=== PATIENT | female | born 1985 | race Caucasian/White ===

== ENCOUNTER 2016-12-04 16:08 | Emergency (ER) | payer OTHER ==
[2016-12-04] MEDS ORDERED: diphenhydrAMINE HCl 25 MG CAP ONE (16:46)
[2016-12-04 16:59] LABS: Bilirubin Negative (Negative); Blood, Urine Trace (Negative); Clarity Hazy (Clear); Glucose, Urine (Dipstick) Negative (Negative); Leukocyte Negative (Negative); Nitrite Negative (Negative); Protein, Urine (Dipstick) Negative (Neg-Trace); Urobilinogen 0.2 mg/dL (0.2-1.0); pH, Urine 8.5 (5.0-9.0)
[2016-12-04 17:01] LABS: Bacteria/HPF 3+ HPF (None Seen); Transitional Epithelial 0-3 HPF (0-3); Yeast-All Forms Rare HPF (None Seen)
[2016-12-04] MEDS ORDERED: Phenazopyridine HCl 97.5 MG TABLET ONE (17:14)
[2016-12-04] MEDS ORDERED: Nitrofurantoin Monohyd/M-Cryst 100 MG CAP ONE (17:14)
--- NOTE | 2016-12-04 17:29 | ERRECORD ---
[facility] EMERGENCY RECORD HPI ALLERGY (16:39 LLDO) CHIEF COMPLAINT: Patient presents for evaluation of itching, Denies swelling, Denies shortness of breath, Patient presents for evaluation of rash, Denies throat closing, Patient presents for evaluation of pt thought she might be getting an UTI as she often has in the past. had an old bottle of septra and took one. almost immediately broke out in hives with intense pruritis. came here immediately to make sure she hadn't hurt her 7.5 month female fetus. baby moving normally and fht 141. pt didn't know about the concerns about using septra during . HISTORIAN: History provided by patient, some dysuria and frequency. some vaginal burning. jus started using monistar. LOCATION: Symptoms are generalized, next ob appt on Nov. QUALITY: Dermal only. SEVERITY: Maximum severity of symptoms moderate, Currently symptoms are mild. TIME COURSE: Patient unable to describe onset of symptoms, There has been no change in the patient's symptoms over time. ASSOCIATED WITH: Associated symptoms reviewed, No associated abdominal pain, No associated anxiety, No associated cough, No associated chest pain, No associated fever, No associated neurological symptoms, Associated with rash, No associated stridor, No associated swelling, No associated vomiting, No associated wheezing, Denies any other complaints. EXACERBATED BY: Patient's condition exacerbated by SCRATCHING. RISK FACTORS: No known previous allergy reactions, No known Beta-sarah use. RELIEVED BY: Patient's condition relieved by nothing because patient has not tried anything for relief. ROS CONSTITUTIONAL: Negative constitutional review of systems, has 7 y/o boy at home and had one spontaneous ab. knows this child is a female. (16:46 LLDO) EYES: Negative eye review of systems, Historian denies eye pain, denies eye redness, denies eye discharge. (16:52 LLDO) ENT: Negative ears, nose, throat review of systems, Historian denies epistaxis, denies rhinorrhea, denies sinus pain, denies sore throat. (16:52 LLDO) GI: FHT 141. baby moving normally. utrus size appropriate for dates. seeing dr. best in [place] for ob care. (16:46 LLDO) MUSCULOSKELETAL: Negative musculoskeletal review of systems, Historian denies arthralgias, denies back pain, denies injury, denies myalgias, denies neck pain. (16:52 LLDO) SKIN: Historian reports pruritis, reports rash. IN HPI. (16:46 LLDO) NEUROLOGIC: Negative neurologic review of systems, Historian denies confusion, denies dizziness, denies focal weakness, denies mental status changes. (16:52 LLDO) HEMO/LYMPHATIC: Normal hematologic/lymphatic system review, &a-1R&a+25V*p+0X*x5396G*c202B*c15G*c2P*p-0X&a-25V&a+1R Name: Michelle Ortiz : 1985 F31 MedRec: [id number] AcctNum: [id number] Prepared: [facility] Dec 04, 2016 17:41 by Interface Page 1 of 4 pMD [facility] EMERGENCY RECORD Historian denies abnormal blood clotting, denies gum bleeding, denies petechiae. (16:52 LLDO) ALLERGIC/IMMUNOLOGIC: Normal allergy/immunologic system review, Historian denies eczema, denies environmental allergies, denies food allergies. (16:52 LLDO) PSYCHIATRIC: Negative psychiatric review of systems, Historian denies alcohol abuse, denies anxiety, denies depression, denies drug abuse, denies hallucinations. (16:52 LLDO) NOTES: All systems reviewed, negative except as described above. (16:46 LLDO) PAST MEDICAL HISTORY MEDICAL HISTORY: No past medical history. ([facility] Dec 04, 2016 16:20 JPER) FEMALE SURGICAL HISTORY: LEEP. ([facility] Dec 04, 2016 16:20 JPER) PSYCHIATRIC HISTORY: Notes: DENIES. ([facility] Dec 04, 2016 16:20 JPER) SOCIAL HISTORY: Patient denies alcohol use, Patient denies drug use, Patient has no smoking history. ([facility] Dec 04, 2016 16:20 JPER) NOTES: Nursing records reviewed, Agree with nursing records, Medication list reviewed. (16:51 LLDO) KNOWN ALLERGIES No Known Drug Allergies Sulfa (Sulfonamide Antibiotics) CURRENT MEDICATIONS (16:21 JPER) None VITAL SIGNS VITAL SIGNS: BP: 122/76, Pulse: 112, Resp: 20, Temp: 98.7 (Tympanic), O2 sat: 100 on Room Air, Time: 12/04/2016 16:18. (16:18 JPER) BP: 125/75, Pulse: 108, Resp: 20, Temp: 98.7, O2 sat: 100 on RA, Time: 12/04/2016 17:25. (17:25 JPER) PHYSICAL EXAM CONSTITUTIONAL: Vital Signs Reviewed, Patient afebrile, Pulse, tachycardic, 112, Blood pressure normal, Respiratory rate normal, Normal pulse oximetry, Patient appears non toxic, Patient appears pain free, Patient alert and oriented to person, place and time, Nursing notes reviewed. (16:50 LLDO) HEAD: Head exam normal, Head exam included findings of head atraumatic, normocephalic. (16:52 LLDO) EYES: Eye exam normal, Eye exam included findings of eyelids normal to inspection, Pupils equally round and reactive to light, Extraocular muscles intact. (16:52 LLDO) ENT: ENT exam normal, Ear exam normal, Nose exam normal. (16:52 &a-1R&a+25V*p+0X*h2040W*c202B*c15G*c2P*p-0X&a-25V&a+1R Name: Michelle Ortiz : 1985 F31 MedRec: [id number] AcctNum: [id number] Prepared: Sat Dec 04, 2016 17:41 by Interface Page 2 of 4 pMD [facility] EMERGENCY RECORD LLDO) NECK: Neck exam normal, Neck exam included findings of normal range of motion, Trachea midline, no meningeal signs, no tenderness. (16:52 LLDO) ABDOMEN FEMALE: Abdominal exam included findings of abdomen nontender, Bowel sounds normal, Liver normal, Spleen normal, no distension, no mass, no pulsatile masses, no peritoneal signs, See HPI and ROS. (16:50 LLDO) BACK: Back exam normal, Back exam included findings of normal inspection, range of motion normal. (16:52 LLDO) UPPER EXTREMITY: Upper extremity exam normal, Upper extremity exam included findings of inspection normal, Range of motion normal. (16:52 LLDO) LOWER EXTREMITY: Lower extremity exam normal, Lower extremity exam included findings of inspection normal, Range of motion normal. (16:52 LLDO) NEURO: Neuro exam normal, Neuro exam findings include patient oriented to person, place and time, Speech normal, [place] coma scale 15. (16:52 LLDO) SKIN: Skin exam normal, Skin exam included findings of skin warm, dry, and normal in color, no rash. (16:52 LLDO) PSYCHIATRIC: Psychiatric exam normal, Psychiatric exam included findings of patient oriented to person place and time, Normal affect. (16:52 LLDO) MEDICATION ADMINISTRATION SUMMARY Drug Name: Macrobid, Dose Ordered: 100 mg, Route: Oral, Status: Given, Time: 17:23 12/04/2016, Drug Name: Pyridium, Dose Ordered: 200 mg, Route: Oral, Status: Given, Time: 17:22 12/04/2016, Drug Name: methylPREDNISolone acetate, Dose Ordered: 60 mg, Route: Intramuscular, Status: Given, Time: 16:41 12/04/2016, Drug Name: Benadryl oral, Dose Ordered: 50 mg, Route: Oral, Status: Given, Time: 16:40 12/04/2016, Detailed record available in Medication Service section. PROBLEM LIST No recorded problems DIAGNOSIS (17:13 LLDO) FINAL: PRIMARY: UTI SITE NOT SPECIFIED. PRESCRIPTION (17:14 LLDO) Macrobid: CAPSULE (HARD, SOFT, ETC.) : 100 mg : ORAL : Quantity: 1 Unit: tab(s) Route: ORAL Schedule: 2 times a day (before meals) Dispense: 20 May substitute. Refills: No Refills . Pyridium: TABLET : 100 mg : ORAL : Quantity: 1 Unit: tab(s) Route: ORAL Schedule: every 8 hours PRN Dispense: 15 &a-1R&a+25V*p+0X*n2929H*c202B*c15G*c2P*p-0X&a-25V&a+1R Name: Michelle Ortiz : 1985 F31 MedRec: [id number] AcctNum: [id number] Prepared: Sat Dec 04, 2016 17:41 by Interface Page 3 of 4 pMD [facility] EMERGENCY RECORD May substitute. Refills: 1 . DISPOSITION PATIENT: Disposition Type: Discharge, Disposition: *Discharge Home. (17:13 LLDO) Patient left the department. (17:38 SHADY) Schafer: SHADY=DAWIT Hernandez, Mariel SOLOMON=MD Ivory, Albino &a-1R&a+25V*p+0X*d6385U*c202B*c15G*c2P*p-0X&a-25V&a+1R Name: Michelle Ortiz : 1985 F31 MedRec: [id number] AcctNum: [id number] Prepared: Navin Dec 04, 2016 17:41 by Interface Page 4 of 4 pMD MTDD
--- NOTE | 2016-12-04 17:32 | PICIS ---
[facility] EMERGENCY RECORD TRIAGE ([facility] Dec 04, 2016 16:20 JPER) COMPLAINT: HAVING MEDICATION SIDE AFFECTS. ([facility] Dec 04, 2016 16:20 JPER) ADMISSION: URGENCY: 3 Urgent, ADMISSION SOURCE: Home, TRANSPORT: Walk-in, BED: ED -03. ([facility] Dec 04, 2016 16:20 JPER) ASSESSMENT: Assessment: POSS ALLERGIC RX TO BACTRIM. ([facility] Dec 04, 2016 16:20 JPER) IMMUNIZATIONS: Tetanus immunization up to date. ([facility] Dec 04, 2016 16:20 JPER) SIRS SCORING: Heart Rate 110-139 (2), Temp range 96.8-101.1 (0), respiratory rate 12-24 (0), Mental Status altered: no (0), Total SIRS Score 2. ([facility] Dec 04, 2016 16:20 JPER) TRIAGE SCREENING: Patient denies suicidal ideation, Patient denies presence of domestic violence. ([facility] Dec 04, 2016 16:20 JPER) LMP: LMP: Unknown, , P: 1. ([facility] Dec 04, 2016 16:20 JPER) PROVIDERS: TRIAGE NURSE: Mariel Hernandez RN. ([facility] Dec 04, 2016 16:20 JPER) VITAL SIGNS: BP 122/76, Pulse 112, Resp 20, Temp 98.7, (Tympanic), O2 Sat 100, on Room Air, Time 12/04/2016 16:18. (16:18 JPER) KNOWN ALLERGIES No Known Drug Allergies Sulfa (Sulfonamide Antibiotics) CURRENT MEDICATIONS (16:21 JPER) None VITAL SIGNS VITAL SIGNS: BP: 122/76, Pulse: 112, Resp: 20, Temp: 98.7 (Tympanic), O2 sat: 100 on Room Air, Time: 12/04/2016 16:18. (16:18 JPER) BP: 125/75, Pulse: 108, Resp: 20, Temp: 98.7, O2 sat: 100 on RA, Time: 12/04/2016 17:25. (17:25 JPER) NURSING ASSESSMENT: ALLERGIC REACTION (16:35 JPER) CONSTITUTIONAL: Patient arrives ambulatory, Gait steady, History obtained from patient, Patient appears comfortable, Patient cooperative, Patient alert, Oriented to person, place and time, Skin warm, Skin dry, Skin normal in color, Mucous membranes pink, Mucous membranes moist, Patient is well-groomed, Patient complains of POSS ALLERGIC RX TO BACTRIM, PT C/O ITCHING TO LEFT FA; BURNING TO AREA AROUND EYES. ALLERGIC REACTION: Allergic reaction to known allergen, BACTRIM, Date and time of exposure: 12/04/16@1530. RESPIRATORY: Breath sounds clear, Respiratory assessment findings include respiratory effort easy, Respirations regular, Conversing normally, Neck and chest exam findings include trachea midline, Chest expansion equal, Chest movement symmetrical. SKIN: Skin assessment findings include skin warm, Skin dry, Skin &a-1R&a+25V*p+0X*i5627Q*c202B*c15G*c2P*p-0X&a-25V&a+1R Name: Michelle Ortiz : 1985 F31 MedRec: [id number] AcctNum: [id number] Prepared: Sat Dec 04, 2016 17:47 by Interface Page 1 of 7 pMD [facility] EMERGENCY RECORD normal in color, Inspection findings include rash, red, flat, itchy, to LEFT FA. NOTES: Emotional support needed and given. NURSING PROCEDURE: DISCHARGE NOTE (17:25 JPER) DISCHARGE: Patient discharged to home, ambulating without assistance, family driving, accompanied by //partner, Summary of Care printed/ provided, Patient requested and was provided an electronic copy of Discharge Instructions, Transition record given to patient, Discharge instructions given to patient, Prescriptions given and instructions on side effects given, Above person(s) verbalized understanding of discharge instructions and follow-up care, Patient treated and evaluated by physician. BELONGINGS: Belongings remain with patient, Valuables remain with patient. NOTES: Emotional support needed and given, Patient tolerated procedure well. VITAL SIGNS: BP: 125, / 75, Pulse: 108, Resp: 20, Temp: 98.7, O2 sat: 100, on: RA. NURSING PROCEDURE: HEART TONES (16:34 JPER) PATIENT IDENTIFIER: Patient actively involved in identification process, Patient's identity verified by patient stating name, Patient's identity verified by hospital ID bracelet. HEART TONES: heart toned obtained with doppler, by juan r pastor, heart rate 146. FOLLOW-UP: After procedure, results given to Dr. dodson. NOTES: Emotional support needed and given. ORDER DETAILS Order Name: Culture, Urine, Status: Active, Time: 16:36 12/04/2016, User: JUANITO, - Ordered for: MD Dodson Lloyd, - Entered by: MD Dodson Lloyd - Sat Dec 04, 2016 16:36, - Quantity: 1, Order Name: Urinalysis w/ Rflx Microscopic, Status: Active, Time: 16:36 12/04/2016, User: JUANITO, - Ordered for: MD Dodson Lloyd, - Entered by: MD Dodson Lloyd - Sat Dec 04, 2016 16:36, - Quantity: 1. MEDICATION ADMINISTRATION SUMMARY Drug Name: Macrobid, Dose Ordered: 100 mg, Route: Oral, Status: Given, Time: 17:23 12/04/2016, Drug Name: Pyridium, Dose Ordered: 200 mg, Route: Oral, Status: Given, Time: 17:22 12/04/2016, Drug Name: methylPREDNISolone acetate, Dose Ordered: 60 mg, Route: Intramuscular, Status: Given, Time: 16:41 12/04/2016, &a-1R&a+25V*p+0X*[id number]*c202B*c15G*c2P*p-0X&a-25V&a+1R Name: Michelle Ortiz : 1985 F31 MedRec: [id number] AcctNum: [id number] Prepared: Sat Dec 04, 2016 17:47 by Interface Page 2 of 7 pMD [facility] EMERGENCY RECORD Drug Name: Benadryl oral, Dose Ordered: 50 mg, Route: Oral, Status: Given, Time: 16:40 12/04/2016, Detailed record available in Medication Service section. MEDICATION SERVICE Benadryl oral: Order: Benadryl oral (diphenhydramine HCl) - Dose: 50 mg : Oral Schedule: Now Ordered by: Albino Dodson MD Entered by: Albino Dodson MD Sat Dec 04, 2016 16:38 Documented as given by: Mariel Hernandez RN Sat Dec 04, 2016 16:40 Patient, Medication, Dose, Route and Time verified prior to administration. Amount given: 50MG, Site: Medication administered P.O., Correct patient, time, route, dose and medication confirmed prior to administration, Patient advised of actions and side-effects prior to administration, Allergies confirmed and medications reviewed prior to administration, Administered by JUAN R PASTOR. Macrobid: Order: Macrobid (nitrofurantoin/nitrofurantoin macrocrystal) - Dose: 100 mg : Oral Schedule: Now Ordered by: Albino Dodson MD Entered by: Albino Dodson MD Sat Dec 04, 2016 17:12 Documented as given by: Mariel Hernandez RN Sat Dec 04, 2016 17:23 Patient, Medication, Dose, Route and Time verified prior to administration. Amount given: 100MG, Site: Medication administered P.O., Correct patient, time, route, dose and medication confirmed prior to administration, Patient advised of actions and side-effects prior to administration, Allergies confirmed and medications reviewed prior to administration, Administered by JUAN R PASTOR. methylPREDNISolone acetate: Order: methylPREDNISolone acetate (methylprednisolone acetate) - Dose: 60 mg : Intramuscular Schedule: Now Ordered by: Albino Dodson MD Entered by: Albino Dodson MD Sat Dec 04, 2016 16:38 Documented as given by: Mariel Hernandez RN Sat Dec 04, 2016 16:41 Patient, Medication, Dose, Route and Time verified prior to administration. IM medication, Amount given: 60MG, Medication administered to left hip, Correct patient, time, route, dose and medication confirmed prior to administration, Patient advised of actions and side-effects prior to administration, Allergies confirmed and medications reviewed prior to administration, Administered by JUAN R PASTOR. Pyridium: Order: Pyridium (phenazopyridine HCl) - Dose: 200 mg : Oral Schedule: Now Ordered by: Albino Dodson MD Entered by: Albino Dodson MD Sat Dec 04, 2016 17:13 Documented as given by: Mariel Hernandez RN Sat Dec 04, 2016 17:22 &a-1R&a+25V*p+0X*y6123X*c202B*c15G*c2P*p-0X&a-25V&a+1R Name: Michelle Ortiz : 1985 F31 MedRec: [id number] AcctNum: [id number] Prepared: Sat Dec 04, 2016 17:47 by Interface Page 3 of 7 pMD [facility] EMERGENCY RECORD Patient, Medication, Dose, Route and Time verified prior to administration. Amount given: 200MG, Site: Medication administered P.O., Correct patient, time, route, dose and medication confirmed prior to administration, Patient advised of actions and side-effects prior to administration, Allergies confirmed and medications reviewed prior to administration, Administered by JUAN R PASTOR. HPI ALLERGY (16:39 LLDO) CHIEF COMPLAINT: Patient presents for evaluation of itching, Denies swelling, Denies shortness of breath, Patient presents for evaluation of rash, Denies throat closing, Patient presents for evaluation of pt thought she might be getting an UTI as she often has in the past. had an old bottle of septra and took one. almost immediately broke out in hives with intense pruritis. came here immediately to make sure she hadn't hurt her 7.5 month female fetus. baby moving normally and fht 141. pt didn't know about the concerns about using septra during . HISTORIAN: History provided by patient, some dysuria and frequency. some vaginal burning. jus started using monistar. LOCATION: Symptoms are generalized, next ob appt on Nov. QUALITY: Dermal only. SEVERITY: Maximum severity of symptoms moderate, Currently symptoms are mild. TIME COURSE: Patient unable to describe onset of symptoms, There has been no change in the patient's symptoms over time. ASSOCIATED WITH: Associated symptoms reviewed, No associated abdominal pain, No associated anxiety, No associated cough, No associated chest pain, No associated fever, No associated neurological symptoms, Associated with rash, No associated stridor, No associated swelling, No associated vomiting, No associated wheezing, Denies any other complaints. EXACERBATED BY: Patient's condition exacerbated by SCRATCHING. RISK FACTORS: No known previous allergy reactions, No known Beta-sarah use. RELIEVED BY: Patient's condition relieved by nothing because patient has not tried anything for relief. ROS CONSTITUTIONAL: Negative constitutional review of systems, has 7 y/o boy at home and had one spontaneous ab. knows this child is a female. (16:46 LLDO) EYES: Negative eye review of systems, Historian denies eye pain, denies eye redness, denies eye discharge. (16:52 LLDO) ENT: Negative ears, nose, throat review of systems, Historian denies epistaxis, denies rhinorrhea, denies sinus pain, denies sore throat. (16:52 LLDO) GI: FHT 141. baby moving normally. utrus size appropriate for dates. seeing dr. best in [place] for ob care. (16:46 LLDO) MUSCULOSKELETAL: Negative musculoskeletal review of systems, &a-1R&a+25V*p+0X*u3398L*c202B*c15G*c2P*p-0X&a-25V&a+1R Name: Michelle Ortiz : 1985 F31 MedRec: [id number] AcctNum: [id number] Prepared: Sat Dec 04, 2016 17:47 by Interface Page 4 of 7 pMD [facility] EMERGENCY RECORD Historian denies arthralgias, denies back pain, denies injury, denies myalgias, denies neck pain. (16:52 LLDO) SKIN: Historian reports pruritis, reports rash. IN HPI. (16:46 LLDO) NEUROLOGIC: Negative neurologic review of systems, Historian denies confusion, denies dizziness, denies focal weakness, denies mental status changes. (16:52 LLDO) HEMO/LYMPHATIC: Normal hematologic/lymphatic system review, Historian denies abnormal blood clotting, denies gum bleeding, denies petechiae. (16:52 LLDO) ALLERGIC/IMMUNOLOGIC: Normal allergy/immunologic system review, Historian denies eczema, denies environmental allergies, denies food allergies. (16:52 LLDO) PSYCHIATRIC: Negative psychiatric review of systems, Historian denies alcohol abuse, denies anxiety, denies depression, denies drug abuse, denies hallucinations. (16:52 LLDO) NOTES: All systems reviewed, negative except as described above. (16:46 LLDO) PAST MEDICAL HISTORY MEDICAL HISTORY: No past medical history. (Sat Dec 04, 2016 16:20 JPER) FEMALE SURGICAL HISTORY: LEEP. (Sat Dec 04, 2016 16:20 JPER) PSYCHIATRIC HISTORY: Notes: DENIES. (Sat Dec 04, 2016 16:20 JPER) SOCIAL HISTORY: Patient denies alcohol use, Patient denies drug use, Patient has no smoking history. (Sat Dec 04, 2016 16:20 JPER) NOTES: Nursing records reviewed, Agree with nursing records, Medication list reviewed. (16:51 LLDO) PHYSICAL EXAM CONSTITUTIONAL: Vital Signs Reviewed, Patient afebrile, Pulse, tachycardic, 112, Blood pressure normal, Respiratory rate normal, Normal pulse oximetry, Patient appears non toxic, Patient appears pain free, Patient alert and oriented to person, place and time, Nursing notes reviewed. (16:50 LLDO) HEAD: Head exam normal, Head exam included findings of head atraumatic, normocephalic. (16:52 LLDO) EYES: Eye exam normal, Eye exam included findings of eyelids normal to inspection, Pupils equally round and reactive to light, Extraocular muscles intact. (16:52 LLDO) ENT: ENT exam normal, Ear exam normal, Nose exam normal. (16:52 LLDO) NECK: Neck exam normal, Neck exam included findings of normal range of motion, Trachea midline, no meningeal signs, no tenderness. (16:52 LLDO) ABDOMEN FEMALE: Abdominal exam included findings of abdomen nontender, Bowel sounds normal, Liver normal, Spleen normal, no &a-1R&a+25V*p+0X*a3908W*c202B*c15G*c2P*p-0X&a-25V&a+1R Name: Michelle Ortiz : 1985 F31 MedRec: [id number] AcctNum: [id number] Prepared: Sat Dec 04, 2016 17:47 by Interface Page 5 of 7 pMD [facility] EMERGENCY RECORD distension, no mass, no pulsatile masses, no peritoneal signs, See HPI and ROS. (16:50 LLDO) BACK: Back exam normal, Back exam included findings of normal inspection, range of motion normal. (16:52 LLDO) UPPER EXTREMITY: Upper extremity exam normal, Upper extremity exam included findings of inspection normal, Range of motion normal. (16:52 LLDO) LOWER EXTREMITY: Lower extremity exam normal, Lower extremity exam included findings of inspection normal, Range of motion normal. (16:52 LLDO) NEURO: Neuro exam normal, Neuro exam findings include patient oriented to person, place and time, Speech normal, Lenny coma scale 15. (16:52 LLDO) SKIN: Skin exam normal, Skin exam included findings of skin warm, dry, and normal in color, no rash. (16:52 LLDO) PSYCHIATRIC: Psychiatric exam normal, Psychiatric exam included findings of patient oriented to person place and time, Normal affect. (16:52 LLDO) EVENTS TRANSFER: Triage to Emergency Main ED -03. (16:20 JPER) Emergency Main ED -03 to -04. (16:21 JPER) Removed from Emergency Main ED -04. (17:38 JPER) PROBLEM LIST No recorded problems DIAGNOSIS (17:13 LLDO) FINAL: PRIMARY: UTI SITE NOT SPECIFIED. DISPOSITION PATIENT: Disposition Type: Discharge, Disposition: *Discharge Home. (17:13 LLDO) Patient left the department. (17:38 JPER) INSTRUCTION (17:14 LLDO) DISCHARGE: UTI CYSTITIS FEMALE ADULT. FOLLOWUP: JR. Deb BEST, CHAYA, Obstetrics and Gynecology, [address] [place] [address], [facility] [id number], [phone], Follow up with Primary Care Physician as scheduled. SPECIAL: Follow-up with your PCP. PRESCRIPTION (17:14 LLDO) Macrobid: CAPSULE (HARD, SOFT, ETC.) : 100 mg : ORAL : Quantity: 1 Unit: tab(s) Route: ORAL Schedule: 2 times a day (before meals) Dispense: 20 May substitute. Refills: No Refills . Pyridium: TABLET : 100 mg : ORAL : Quantity: 1 Unit: tab(s) Route: ORAL Schedule: every 8 hours PRN Dispense: 15 May substitute. Refills: 1 . &a-1R&a+25V*p+0X*q5178W*c202B*c15G*c2P*p-0X&a-25V&a+1R Name: Michelle Ortiz : 1985 F31 MedRec: [id number] AcctNum: [id number] Prepared: Sat Dec 04, 2016 17:47 by Interface Page 6 of 7 pMD [facility] EMERGENCY RECORD IMAGING *DISCHARGE INSTRUCTIONS RECEIPT: Image captured from scanner. (17:25 JPER) *SUPPLY CHARGE SHEET: Image captured from scanner. (17:29 JPER) ADMIN DIGITAL SIGNATURE: MD Dodson Lloyd. (17:15 LLDO) MD Dodson Lloyd. (17:15 LLDO) MD Dodson Lloyd. (17:15 LLDO) MD Dodson Lloyd. (17:15 LLDO) MD Dodson Lloyd. (17:15 LLDO) MD Dodson Lloyd. (17:15 LLDO) MD Dodson Lloyd. (17:15 LLDO) DAWIT Hernandez Jana. (17:38 JPER) Schafer: JPER=DAWIT Hernandez Jana LLDO=MD Dodson Lloyd &a-1R&a+25V*p+0X*m5947W*c202B*c15G*c2P*p-0X&a-25V&a+1R Name: Michelle Ortiz : 1985 1 MedRec: [id number] AcctNum: [id number] Prepared: Navin Dec 04, 2016 17:47 by Interface Page 7 of 7 pMD [facility] MEDICATION RECONCILIATION You were seen in the Emergency Department on: Sat Dec 04, 2016 KNOWN ALLERGIES No Known Drug Allergies Sulfa (Sulfonamide Antibiotics) MEDICATIONS GIVEN WHILE IN THE EMERGENCY DEPARTMENT methylPREDNISolone acetate (methylprednisolone acetate) - Dose: 60 milligram(s) : Intramuscular Benadryl oral (diphenhydramine HCl) - Dose: 50 milligram(s) : Oral Macrobid (nitrofurantoin/nitrofurantoin macrocrystal) - Dose: 100 milligram(s) : Oral Pyridium (phenazopyridine HCl) - Dose: 200 milligram(s) : Oral HOME MEDICATIONS None Notes from the emergency department Reviewed with patient PRESCRIPTIONS (2) Printed (2) Macrobid : CAPSULE (HARD, SOFT, ETC.) : 100 mg : ORAL Quantity: 1, Unit: tab(s), Route: ORAL, Schedule: 2 times a day (before meals), Dispense: 20 &a-1R&a+25V*p+0X*e5229K*c202B*c15G*c2P*p-0X&a-25V&a+1R Name: Michelle Ortiz : 1985 F31 MedRec: [id number] AcctNum: [id number] Prepared: Navin Dec 04, 2016 17:47 by Interface pMD [facility]
== END 2016-12-04 17:20 | disposition home or self-care (01) ==
LOC: MADERS 16:08
DX: N39.0 Urinary tract infection, site not specified (principal)
CPT/HCPCS: 81003; 81015; 87086; 96372; J1040

== ENCOUNTER 2016-12-04 23:36 | Emergency (ER) | payer OTHER ==
[2016-12-04] MEDS ORDERED: predniSONE 20 MG TAB ONE (23:58)
[2016-12-04] MEDS ORDERED: diphenhydrAMINE HCl 25 MG CAP ONE (23:58)
[2016-12-05] MEDS ORDERED: diphenhydrAMINE HCl 25 MG CAP ONE
--- NOTE | 2016-12-05 01:11 | ERRECORD ---
[facility] EMERGENCY RECORD HPI ALLERGY (TueDec 05, 2016 00:03 MAULIK) CHIEF COMPLAINT: Patient presents for evaluation of itching, Patient presents for evaluation of rash. HISTORIAN: History provided by patient. LOCATION: Symptoms are generalized. ROS ([place] Dec 05, 2016 00:03 MAULIK) CONSTITUTIONAL: Negative constitutional review of systems, Historian denies chills, Historian denies fever. 34 wks by history. EYES: Negative eye review of systems. ENT: Negative ears, nose, throat review of systems. CARDIOVASCULAR: Negative cardiovascular review of systems, Historian denies chest pain, denies palpitations. RESPIRATORY: Negative respiratory review of systems, Historian denies cough, denies shortness of breath. GI: Negative gastrointestinal review of systems, Historian denies abdominal pain, denies constipation, denies diarrhea. MUSCULOSKELETAL: Negative musculoskeletal review of systems. SKIN: Historian reports rash. NEUROLOGIC: Negative neurologic review of systems. ENDOCRINE: Negative endocrine review of systems. HEMO/LYMPHATIC: Normal hematologic/lymphatic system review. PSYCHIATRIC: Negative psychiatric review of systems. NOTES: All other ROS is negative except as listed in HPI. PAST MEDICAL HISTORY MEDICAL HISTORY: No past medical history. (23:42 JDEA) FEMALE SURGICAL HISTORY: LEEP. (23:42 JDEA) PSYCHIATRIC HISTORY: Notes: DENIES. (23:42 JDEA) SOCIAL HISTORY: Patient denies alcohol use, Patient denies drug use, Patient has no smoking history. (23:42 JDEA) NOTES: I have reviewed and agree with the PMH/PSxH/FamHx/SocHx obtained by the nurse. ([place] Dec 05, 2016 00:03 MAULIK) KNOWN ALLERGIES Sulfa (Sulfonamide Antibiotics) CURRENT MEDICATIONS (23:41 JDEA) None VITAL SIGNS VITAL SIGNS: BP: 138/86, Pulse: 110, Resp: 20, Pain: 6, O2 sat: 100 on Room Air, Time: 12/04/2016 23:39. (23:39 JDEA) Temp: 97.9, Time: 12/05/2016 00:14. ([place] Dec 05, 2016 00:14 JDEA) PHYSICAL EXAM CONSTITUTIONAL: Vital signs reviewed, Patient appears non toxic, Patient alert and oriented to person, place and time, Pt is in &a-1R&a+25V*p+0X*e1072C*c202B*c15G*c2P*p-0X&a-25V&a+1R Name: Michelle Ortiz : 1985 F31 MedRec: [id number] AcctNum: [id number] Prepared: TueDec 05, 2016 00:17 by Interface Page 1 of 3 pMD [facility] EMERGENCY RECORD no apparent distress. ([place] Dec 05, 2016 00:03 [facility]) HEAD: Head exam included findings of head atraumatic, normocephalic. (TueDec 05, 2016 00:03 SHAN) EYES: Eye exam included findings of eyelids normal to inspection, Pupils equally round and reactive to light, Extraocular muscles intact. (TueDec 05, 2016 00:03 [facility]) ENT: ENT exam normal, Nose exam normal, no nasal deformity, no bleeding from nares, Pharynx exam normal, Mouth exam normal, mucous membranes moist. ([place] Dec 05, 2016 00:03 [facility]) NECK: Neck exam included findings of normal range of motion, Trachea midline. ([place] Dec 05, 2016 00:03 [facility]) RESPIRATORY CHEST: Respiratory and chest exam normal, Breath sounds clear, No wheezing, No rales, Chest exam included findings of chest movement symmetrical, Chest expansion equal. Lungs are quite clear. ([place] Dec 05, 2016 00:03 [facility]) CARDIOVASCULAR: Cardiovascular assessment normal, Cardiovascular exam included findings of heart rate regular rate and rhythm, Heart sounds normal. ([place] Dec 05, 2016 00:03 [facility]) ABDOMEN FEMALE: Abdominal exam included findings of abdomen nontender, Bowel sounds normal, no mass, no pulsatile masses, no peritoneal signs. ([place] Dec 05, 2016 00:03 [facility]) GENITOURINARY FEMALE: uterus obviously gravid compatible with the 34 weeks gestation given by patient. ([place] Dec 05, 2016 00:04 [facility]) BACK: Back exam included findings of normal inspection, range of motion normal, no costovertebral angle tenderness. ([place] Dec 05, 2016 00:03 SHAN) UPPER EXTREMITY: Upper extremity exam included findings of inspection normal, Range of motion normal. ([place] Dec 05, 2016 00:03 SHAN) LOWER EXTREMITY: Lower extremity exam included findings of inspection normal, Range of motion normal. ([place] Dec 05, 2016 00:03 [facility]) NEURO: Neuro exam findings include patient oriented to person, place and time, Speech normal, no focal motor deficits, no focal sensory deficits. (TueDec 05, 2016 00:03 SHAN) SKIN: Skin exam included findings of skin warm, dry, and normal in color. Mild lip edema notes; red blotches on face. Circumscribed erythema multiforme lesions with a pronounced one on the left shoulder. (TueDec 05, 2016 00:03 SHAN) LYMPHATIC: Lymphatic exam normal. (TueDec 05, 2016 00:03 SHAN) PSYCHIATRIC: Psychiatric exam included findings of patient oriented to person place and time, Normal affect. (TueDec 05, 2016 00:03 SHAN) MEDICATION ADMINISTRATION SUMMARY Drug Name: *Benadryl Allergy, Dose Ordered: 25 mg, Route: Oral, Status: Given, Time: 00:09 12/05/2016, Drug Name: predniSONE oral, Dose Ordered: 1 tab(s), Route: Oral, &a-1R&a+25V*p+0X*s7519P*c202B*c15G*c2P*p-0X&a-25V&a+1R Name: Michelle Ortiz : 1985 F31 MedRec: [id number] AcctNum: [id number] Prepared: TueDec 05, 2016 00:17 by Interface Page 2 of 3 pMD [facility] EMERG[facility] RECORD Status: Given, Time: 00:08 12/05/2016, *Additional information available in notes, Detailed record available in Medication Service section. DOCTOR NOTES (TueDec 05, 2016 00:06 SHAN) TEXT: 34 week lady; states that she knew she had a bladder infection so she took a left over sulfa tablet, then broke out. Was seen in er here earlier and given some Benadryl oral; and then also script for pyridium and macrodantin. The urine results were borderline earlier today but cultured. No sign of uterine contractions. heart tones in 150's. After patient went home she started breaking out more and returned. Note that she had a similar but lesser reaction in the past when she then self medicated with left over clindamycin and Bactrim and broke out but she reasoned that she had just taken too much antibiotic. Cautioned her gently to not use left over medications and that she is clearly allergic to sulfa antibiotics. She stated she would return if any worsening. PROBLEM LIST No recorded problems DIAGNOSIS ([place] Dec 05, 2016 00:03 MAULIK) FINAL: PRIMARY: sulfa medication allergy. PRESCRIPTION Medrol (Reilly): TABLET, DOSE PACK : 4 mg : ORAL : Quantity: 1 Unit: tab(s) Route: ORAL Schedule: See Notes Dispense: 1 Unit: units May substitute. Refills: No Refills . (23:59 MAULIK) NOTES: one Medrol dosepack, take as directed starting tuesday am No Refills. (23:59 MAULIK) Benadryl Allergy: TABLET : 25 mg : ORAL : Quantity: 2 Unit: tab(s) Route: ORAL Schedule: every 6 hours PRN Dispense: 20 Unit: tab(s) May substitute. Refills: No Refills . ([place] Dec 05, 2016 00:00 MAULIK) NOTES: No Refills. ([place] Dec 05, 2016 00:00 MAULIK) DISPOSITION PATIENT: Disposition Type: Discharge, Disposition: *Discharge Home. ([place] Dec 05, 2016 00:03 MAULIK) Patient left the department. ([place] Dec 05, 2016 00:15 ANGEL) Schafer: ANGEL=DAWIT Mack, Adelia WILLINGHAM=MD Dominic, Dereck &a-1R&a+25V*p+0X*u5082V*c202B*c15G*c2P*p-0X&a-25V&a+1R Name: Michelle Ortiz : 1985 F31 MedRec: [id number] AcctNum: [id number] Prepared: [place] Dec 05, 2016 00:17 by Interface Page 3 of 3 pMD MTDD
--- NOTE | 2016-12-05 01:22 | PICIS ---
[facility] EMERGENCY RECORD TRIAGE ([facility] Dec 04, 2016 23:40 JDEA) TRIAGE NOTES: PT IN FOR ALLERGIC REACTION TO SULFA FOR THE SECOND TIME TODAY. (Sat Dec 04, 2016 23:40 JDEA) PATIENT: NAME: Michelle Ortiz, AGE: 31, GENDER: female, : Tue1985, TIME OF GREET: Sat Dec 04, 2016 23:37, PREFERRED LANGUAGE: Tuvaluan, ETHNICITY: Not or , [facility]: [facility], SSN: [id number], Zip Code: [address], KG WEIGHT: 63.50, PHONE: , , , PERSON ID: [id number], PCP: JR. Deb CAVAZOS THOMAS. (Sat Dec 04, 2016 23:40 JDEA) COMPLAINT: Allergic Reaction. ([facility] Dec 04, 2016 23:40 JDEA) ADMISSION: URGENCY: 2 Emergent, ADMISSION SOURCE: Home, TRANSPORT: Walk-in, BED: TRIAGE. (Sat Dec 04, 2016 23:40 JDEA) IMMUNIZATIONS: Flu vaccine not up to date, Tetanus immunization up to date, Pneumococcal vaccine not up to date. (23:42 JDEA) TRIAGE SCREENING: Patient denies suicidal ideation, Patient denies presence of domestic violence. (23:42 JDEA) LMP: Last menstrual period: 04/30/2016, Estimated conception 05/14/2016, Estimated due date 02/04/2017, Estimated age 31 weeks, 2 days, , P: 1, AB: 1. (23:42 JDEA) PROVIDERS: TRIAGE NURSE: Adelia Mack RN. (Sat Dec 04, 2016 23:40 JDEA) VITAL SIGNS: BP 138/86, Pulse 110, Resp 20, Pain 6, O2 Sat 100, on Room Air, Time 12/04/2016 23:39. (23:39 JDEA) PREVIOUS VISIT ALLERGIES: No Known Drug Allergies, Sulfa (Sulfonamide Antibiotics). (Sat Dec 04, 2016 23:40 JDEA) No Known Drug Allergies, Sulfa (Sulfonamide Antibiotics). (23:42 JDEA) KNOWN ALLERGIES Sulfa (Sulfonamide Antibiotics) CURRENT MEDICATIONS (23:41 JDEA) None VITAL SIGNS VITAL SIGNS: BP: 138/86, Pulse: 110, Resp: 20, Pain: 6, O2 sat: 100 on Room Air, Time: 12/04/2016 23:39. (23:39 JDEA) Temp: 97.9, Time: 12/05/2016 00:14. (Nikki Dec 05, 2016 00:14 JDEA) NURSING ASSESSMENT: ENT (23:45 JDEA) CONSTITUTIONAL: Complex assessment performed, Patient arrives ambulatory, Gait steady, History obtained from patient, Patient appears comfortable, Patient cooperative, Patient alert, Oriented to person, place and time, Skin warm, Skin dry, Skin normal in color, Mucous membranes pink, Mucous membranes moist, Patient complains of allergic reaction, pt in again today states for an allergic reaction to an antibiotic she took earlier called sulfa. states that she was diagnosed with a uti and took a prescription she had at home for it and that her mouth began to swell, states that she took &a-1R&a+25V*p+0X*f6014J*c202B*c15G*c2P*p-0X&a-25V&a+1R Name: Michelle Ortiz : 1985 F31 MedRec: [id number] AcctNum: [id number] Prepared: Nikki Dec 05, 2016 00:23 by Interface Page 1 of 7 pMD [facility] EMERGENCY RECORD Benadryl here and at home and that it was not getting better, that her mouth is getting worse and her throat is itching. PAIN: itching pain, throat, mouth, eyes., constant, on a scale 0-10 patient rates pain as 6. ENT: Ear assessment findings include ear normal to inspection, Nasal assessment findings include nose normal to inspection, Sinuses normal, Nasal mucosa normal, Mouth and throat assessment findings include mouth, swelling noted around the mouth, Uvula normal, Tonsils normal, Mucous membranes pink, and moist, Speech normal, Notes: pt able to swallow, speaks clear without difficulty. RESPIRATORY/CHEST: Breath sounds clear, Respiratory assessment findings include respiratory effort easy, Respirations regular, Conversing normally, Neck and chest exam findings include trachea midline, Chest expansion equal, Chest movement symmetrical, no signs of distress, no associated cough noted, no associated fever. NOTES: Patient tolerated procedure well, Notes: swelling noted to eyes as well, states they are itching. SAFETY: Side rails up, Cart/Stretcher in lowest position, Family at bedside, Call light within reach, Hospital ID band on. NURSING ASSESSMENT: RESPIRATORY /CHEST (23:49 JDEA) RESPIRATORY/CHEST: Breath sounds clear, Respiratory assessment findings include respiratory effort easy, Respirations regular, Conversing normally, Neck and chest exam findings include trachea midline, Chest expansion equal, Chest movement symmetrical, no signs of distress, no retractions noted, no cyanosis, no associated cough noted, no associated fever. NOTES: Patient tolerated procedure well. NURSING PROCEDURE: HEALTHCARE ECONOMICS MANAGER (23:48 JDEA) PATIENT IDENTIFIER: Patient actively involved in identification process, Patient's identity verified by patient stating name, Patient's identity verified by patient stating date, Patient's identity verified by hospital ID bracelet. HEALTHCARE ECONOMICS MANAGER: Cardiac monitoring indicated for er indication, Patient placed on gambling monitor, Patient placed on non-invasive blood pressure monitor, Patient placed on continuous pulse oximetry. FOLLOW-UP: After procedure, alarms set and on, After procedure, patient tolerating monitoring. NOTES: Patient tolerated procedure well. SAFETY: Side rails up, Cart/Stretcher in lowest position, Family at bedside, Call light within reach, Hospital ID band on. NURSING PROCEDURE: DISCHARGE NOTE (Nikki Dec 05, 2016 00:14 JDEA) DISCHARGE: Patient discharged to home, ambulating without assistance, family driving, accompanied by other family member, Summary of Care printed/ provided, Patient requested and was provided an electronic copy of Discharge Instructions, Transition record given &a-1R&a+25V*p+0X*t0422Y*c202B*c15G*c2P*p-0X&a-25V&a+1R Name: Michelle Ortiz : 1985 F31 MedRec: [id number] AcctNum: [id number] Prepared: Nikki Dec 05, 2016 00:23 by Interface Page 2 of 7 pMD [facility] EMERGENCY RECORD to patient, Discharge instructions given to patient, Simple or moderate discharge teaching performed, Prescriptions given and instructions on side effects given, Above person(s) verbalized understanding of discharge instructions and follow-up care, Patient treated and evaluated by physician. BELONGINGS: Belongings and valuables with patient at time of discharge include:, Belongings remain with patient. VITAL SIGNS: Temp: 97.9. NURSING PROCEDURE: HEART TONES (TueDec 05, 2016 00:10 JDEA) PATIENT IDENTIFIER: Patient actively involved in identification process, Patient's identity verified by patient stating name, Patient's identity verified by patient stating date, Patient's identity verified by hospital ID bracelet. HEART TONES: heart tones indicated for er indication, heart toned obtained with doppler, by Becca, heart rate 158. FOLLOW-UP: After procedure, results given to Dr. MD Alfaro. NOTES: Patient tolerated procedure well. SAFETY: Side rails up, Cart/Stretcher in lowest position, Family at bedside, Call light within reach, Hospital ID band on. MEDICATION ADMINISTRATION SUMMARY Drug Name: *Benadryl Allergy, Dose Ordered: 25 mg, Route: Oral, Status: Given, Time: 00:09 12/05/2016, Drug Name: predniSONE oral, Dose Ordered: 1 tab(s), Route: Oral, Status: Given, Time: 00:08 12/05/2016, *Additional information available in notes, Detailed record available in Medication Service section. MEDICATION SERVICE Benadryl Allergy: Order: Benadryl Allergy (diphenhydramine HCl) - Dose: 25 mg : Oral Schedule: Now Notes: Verbal Order Ordered by: Dereck Alfaro MD Entered by: DAWIT Zaragoza Dec 05, 2016 00:08 Documented as given by: Adelia Mack RN [place] Dec 05, 2016 00:09 Patient, Medication, Dose, Route and Time verified prior to administration. Amount given: 25 mg, Site: Medication administered P.O., Correct patient, time, route, dose and medication confirmed prior to administration, Patient advised of actions and side-effects prior to administration, Allergies confirmed and medications reviewed prior to administration, Patient in position of comfort, Side rails up, Cart in lowest position, Family at bedside, Call light in reach. predniSONE oral: Order: predniSONE oral (prednisone) - Dose: 1 tab(s) : Oral Schedule: Now &a-1R&a+25V*p+0X*y9928Q*c202B*c15G*c2P*p-0X&a-25V&a+1R Name: Michelle Ortiz : 1985 F31 MedRec: [id number] AcctNum: [id number] Prepared: Nikki Dec 05, 2016 00:23 by Interface Page 3 of 7 pMD [facility] EMERGENCY RECORD Ordered by: Dereck Alfaro MD Entered by: Dereck Alfaro MD [facility] Dec 04, 2016 23:57 Documented as given by: DAWIT Zaragoza Dec 05, 2016 00:08 Patient, Medication, Dose, Route and Time verified prior to administration. Amount given: 20 mg, Site: Medication administered P.O., Correct patient, time, route, dose and medication confirmed prior to administration, Patient advised of actions and side-effects prior to administration, Allergies confirmed and medications reviewed prior to administration, Patient in position of comfort, Side rails up, Cart in lowest position, Family at bedside, Call light in reach. HPI ALLERGY ([place] Dec 05, 2016 00:03 SHAN) CHIEF COMPLAINT: Patient presents for evaluation of itching, Patient presents for evaluation of rash. HISTORIAN: History provided by patient. LOCATION: Symptoms are generalized. ROS ([place] Dec 05, 2016 00:03 SHAN) CONSTITUTIONAL: Negative constitutional review of systems, Historian denies chills, Historian denies fever. 34 wks by history. EYES: Negative eye review of systems. ENT: Negative ears, nose, throat review of systems. CARDIOVASCULAR: Negative cardiovascular review of systems, Historian denies chest pain, denies palpitations. RESPIRATORY: Negative respiratory review of systems, Historian denies cough, denies shortness of breath. GI: Negative gastrointestinal review of systems, Historian denies abdominal pain, denies constipation, denies diarrhea. MUSCULOSKELETAL: Negative musculoskeletal review of systems. SKIN: Historian reports rash. NEUROLOGIC: Negative neurologic review of systems. ENDOCRINE: Negative endocrine review of systems. HEMO/LYMPHATIC: Normal hematologic/lymphatic system review. PSYCHIATRIC: Negative psychiatric review of systems. NOTES: All other ROS is negative except as listed in HPI. PAST MEDICAL HISTORY MEDICAL HISTORY: No past medical history. (23:42 JDEA) FEMALE SURGICAL HISTORY: LEEP. (23:42 JDEA) PSYCHIATRIC HISTORY: Notes: DENIES. (23:42 JDEA) SOCIAL HISTORY: Patient denies alcohol use, Patient denies drug use, Patient has no smoking history. (23:42 JDEA) NOTES: I have reviewed and agree with the PMH/PSxH/FamHx/SocHx obtained by the nurse. (TueDec 05, 2016 00:03 SHAN) PHYSICAL EXAM CONSTITUTIONAL: Vital signs reviewed, Patient appears non toxic, &a-1R&a+25V*p+0X*t4095F*c202B*c15G*c2P*p-0X&a-25V&a+1R Name: Michelle Ortiz : 1985 F31 MedRec: [id number] AcctNum: [id number] Prepared: TueDec 05, 2016 00:23 by Interface Page 4 of 7 pMD [facility] EMERGENCY RECORD Patient alert and oriented to person, place and time, Pt is in no apparent distress. (TueDec 05, 2016 00:03 SHAN) HEAD: Head exam included findings of head atraumatic, normocephalic. (TueDec 05, 2016 00:03 SHAN) EYES: Eye exam included findings of eyelids normal to inspection, Pupils equally round and reactive to light, Extraocular muscles intact. (TueDec 05, 2016 00:03 SHAN) ENT: ENT exam normal, Nose exam normal, no nasal deformity, no bleeding from nares, Pharynx exam normal, Mouth exam normal, mucous membranes moist. (TueDec 05, 2016 00:03 SHAN) NECK: Neck exam included findings of normal range of motion, Trachea midline. ([place] Dec 05, 2016 00:03 [facility]) RESPIRATORY CHEST: Respiratory and chest exam normal, Breath sounds clear, No wheezing, No rales, Chest exam included findings of chest movement symmetrical, Chest expansion equal. Lungs are quite clear. (TueDec 05, 2016 00:03 SHAN) CARDIOVASCULAR: Cardiovascular assessment normal, Cardiovascular exam included findings of heart rate regular rate and rhythm, Heart sounds normal. (TueDec 05, 2016 00:03 SHAN) ABDOMEN FEMALE: Abdominal exam included findings of abdomen nontender, Bowel sounds normal, no mass, no pulsatile masses, no peritoneal signs. ([place] Dec 05, 2016 00:03 SHAN) GENITOURINARY FEMALE: uterus obviously gravid compatible with the 34 weeks gestation given by patient. ([place] Dec 05, 2016 00:04 SHAN) BACK: Back exam included findings of normal inspection, range of motion normal, no costovertebral angle tenderness. ([place] Dec 05, 2016 00:03 SHAN) UPPER EXTREMITY: Upper extremity exam included findings of inspection normal, Range of motion normal. (TueDec 05, 2016 00:03 SHAN) LOWER EXTREMITY: Lower extremity exam included findings of inspection normal, Range of motion normal. ([place] Dec 05, 2016 00:03 SHAN) NEURO: Neuro exam findings include patient oriented to person, place and time, Speech normal, no focal motor deficits, no focal sensory deficits. ([place] Dec 05, 2016 00:03 SHAN) SKIN: Skin exam included findings of skin warm, dry, and normal in color. Mild lip edema notes; red blotches on face. Circumscribed erythema multiforme lesions with a pronounced one on the left shoulder. ([place] Dec 05, 2016 00:03 SHAN) LYMPHATIC: Lymphatic exam normal. ([place] Dec 05, 2016 00:03 [facility]) PSYCHIATRIC: Psychiatric exam included findings of patient oriented to person place and time, Normal affect. ([place] Dec 05, 2016 00:03 SHAN) EVENTS TRANSFER: Triage to Emergency Triage. (23:40 JDEA) Emergency Triage to Main ED -01. (23:45 JDEA) Removed from Emergency Main ED -01. ([place] Dec 05, 2016 00:15 JDEA) &a-1R&a+25V*p+0X*i1144M*c202B*c15G*c2P*p-0X&a-25V&a+1R Name: Michelle Ortiz : 1985 F31 MedRec: [id number] AcctNum: [id number] Prepared: Nikki Dec 05, 2016 00:23 by Interface Page 5 of 7 pMD [facility] EMERGENCY RECORD DOCTOR NOTES ([place] Dec 05, 2016 00:06 SHAN) TEXT: 34 week lady; states that she knew she had a bladder infection so she took a left over sulfa tablet, then broke out. Was seen in er here earlier and given some Benadryl oral; and then also script for pyridium and macrodantin. The urine results were borderline earlier today but cultured. No sign of uterine contractions. heart tones in 150's. After patient went home she started breaking out more and returned. Note that she had a similar but lesser reaction in the past when she then self medicated with left over clindamycin and Bactrim and broke out but she reasoned that she had just taken too much antibiotic. Cautioned her gently to not use left over medications and that she is clearly allergic to sulfa antibiotics. She stated she would return if any worsening. PROBLEM LIST No recorded problems DIAGNOSIS (TueDec 05, 2016 00:03 SHAN) FINAL: PRIMARY: sulfa medication allergy. DISPOSITION PATIENT: Disposition Type: Discharge, Disposition: *Discharge Home. (TueDec 05, 2016 00:03 MAULIK) Patient left the department. (TueDec 05, 2016 00:15 JDEA) INSTRUCTION (TueDec 05, 2016 00:02 MAULIK) DISCHARGE: MEDICATION REACTION ALLERGIC. FOLLOWUP: JR. Deb CAVAZOS, CHAYA, Obstetrics and Gynecology, [address] [place] [id number], [phone]. SPECIAL: 1. Benadryl 2 of 25 mg up to four times a day only if needed 2. start the Medrol dosepack tomorrow 3. attempt to call your physician tomorrow to check in 4. return if problem worsens 5. see your ob provider Tuesday if possible. PRESCRIPTION Medrol (Reilly): TABLET, DOSE PACK : 4 mg : ORAL : Quantity: 1 Unit: tab(s) Route: ORAL Schedule: See Notes Dispense: 1 Unit: units May substitute. Refills: No Refills . (23:59 [facility]) NOTES: one Medrol dosepack, take as directed starting tuesday am No Refills. (23:59 [facility]) Benadryl Allergy: TABLET : 25 mg : ORAL : Quantity: 2 Unit: tab(s) Route: ORAL Schedule: every 6 hours PRN Dispense: 20 Unit: tab(s) May substitute. Refills: No Refills . (TueDec 05, 2016 00:00 MAULIK) NOTES: No Refills. (TueDec 05, 2016 00:00 MAULIK) &a-1R&a+25V*p+0X*y4775O*c202B*c15G*c2P*p-0X&a-25V&a+1R Name: Michelle Ortiz : 1985 F31 MedRec: [id number] AcctNum: [id number] Prepared: Nikki Dec 05, 2016 00:23 by Interface Page 6 of 7 pMD [facility] EMERGENCY RECORD IMAGING ([place] Dec 05, 2016 00:16 ANGEL) *DISCHARGE INSTRUCTIONS RECEIPT: Image captured from scanner. *SUPPLY CHARGE SHEET: Image captured from scanner. ADMIN ([place] Dec 05, 2016 00:11 MAULIK) DIGITAL SIGNATURE: MD Alfaro Stanley. Schafer: ANGEL=DAWIT Mack, Adelia WILLINGHAM=MD Alfaro Stanley &a-1R&a+25V*p+0X*k8848M*c202B*c15G*c2P*p-0X&a-25V&a+1R Name: Michelle Ortiz : 1985 F31 MedRec: [id number] AcctNum: [id number] Prepared: Nikki Dec 05, 2016 00:23 by Interface Page 7 of 7 pMD MTDD
== END 2016-12-05 00:14 | disposition home or self-care (01) ==
LOC: MADERS 23:36
DX: O9A.213 Injury, poisoning and certain other consequences of external causes complicating pregnancy, third trimester (principal); R21 Rash and other nonspecific skin eruption; T37.0X5A Adverse effect of sulfonamides, initial encounter; Z3A.34 34 weeks gestation of pregnancy
CPT/HCPCS: 81003; 81015; 87086; 96372; 99282; J1040; J7506

== ENCOUNTER 2018-05-15 21:51 | Emergency (ER) | payer OTHER, SELFPAY | END 2018-05-15 22:15 | disposition home or self-care (01) | LOC: MADERS 21:51 | DX: T16.1XXA Foreign body in right ear, initial encounter (principal) | CPT/HCPCS: 99282 ==

== ENCOUNTER 2020-09-22 18:05 | Emergency (ER) | payer OTHER, SELFPAY ==
[2020-09-22] MEDS ORDERED: Ibuprofen 400 MG TAB ONE (18:36)
--- NOTE | 2020-09-22 18:59 | RAD ---
LEFT WRIST THREE VIEWS: History: Pain Comparison: None FINDINGS: No acute displaced fracture or malalignment. Mild soft tissue swelling along the thenar eminence. IMPRESSION: No acute displaced fracture. POS: HOME
--- NOTE | 2020-09-22 19:04 | RAD ---
LEFT ELBOW FOUR VIEWS: History: Pain Comparison: None FINDINGS: No acute displaced fracture or malalignment. There appears to be an implanted device on the medial as pect of the upper arm above the elbow. No joint effusion. IMPRESSION: No acute fracture or malalignment. POS: HOME
== END 2020-09-22 19:10 | disposition home or self-care (01) ==
LOC: MADERS 18:05
DX: S60.212A Contusion of left wrist, initial encounter (principal); S00.81XA Abrasion of other part of head, initial encounter; W22.8XXA Striking against or struck by other objects, initial encounter

== ENCOUNTER 2022-03-23 05:17 | Emergency (ER) | payer OTHER ==
[2022-03-23] MEDS ORDERED: Ibuprofen 600 MG TAB ONE (06:02)
== END 2022-03-23 06:29 | disposition home or self-care (01) ==
LOC: MADERS 05:17
DX: S93.412A Sprain of calcaneofibular ligament of left ankle, initial encounter (principal); X50.1XXA Overexertion from prolonged static or awkward postures, initial encounter; Y93.39 Activity, other involving climbing, rappelling and jumping off